=== PATIENT | male | born 1970 | race Caucasian/White ===

== ENCOUNTER 2018-07-08 09:55 | Emergency (ER) | payer BC ==
--- NOTE | 2018-07-08 10:14 | Emergency Department Record ---
History of Present Illness - General Chief Complaint: Ankle/Foot Injury Stated Complaint: RIGHT FOOT INJURY Time Seen by Provider: 07/08/18 09:58 Source: Patient Mode of Arrival: Ambulatory Limitations: No limitations - History of Present Illness Initial Comments: The patient is here due to dropping a 45 lb barbell onto the tops of both feet. The R foot is much worse than the left but both are painful. He is able to walk on the heel of the R foot. Complaint: Foot injury Onset/Timin -: Hour(s) Type of Injury: Blunt Place: Other Severity scale (1-10): 4 Improves With: Nothing Worsens With: Nothing Context: Direct blow Treatments Prior to Arrival: NSAIDS - Related Data Home Medications Medication Instructions Recorded Confirmed Last Taken Ibuprofen [Motrin] 800 mg PO ASDIR 07/08/18 07/08/18 07/08/18 Allergies Allergy/AdvReac Type Severity Reaction Status Date / Time No Known Drug Allergies Allergy Verified 07/08/18 10:09 Travel Screening - Travel/Exposure Within Last 30 Days Have you traveled within the last 30 days?: No - Travel/Exposure Within Last Year Have you traveled outside the [place] in the last year?: No - Additonal Travel Details Have you been exposed to anyone with a communicable illness?: No - Travel Symptoms Symptom Screening: None Review of Systems Constitutional: Denies: Chills, Fever Eyes: Denies: Eye discharge ENT: Denies: Congestion Respiratory: Denies: Cough, Dyspnea Past Medical History - SOCIAL HISTORY Smoking Status: Former smoker Alcohol Use: Rare Drug Use: None - RESPIRATORY Hx Respiratory Disorders: Yes Hx Pneumonia: Yes - CARDIOVASCULAR Hx Cardio Disorders: No - NEURO Hx Neuro Disorders: No - GI Hx GI Disorders: No - Hx Genitourinary Disorders: No - ENDOCRINE Hx Endocrine Disorders: No - MUSCULOSKELETAL Hx Musculoskeletal Disorders: No - PSYCH Hx Psych Problems: No - HEMATOLOGY/ONCOLOGY Hx Hematology/Oncology Disorders: No Family Medical History Any Significant Family History?: No Physical Exam - General General Appearance: Alert, Oriented x3, Cooperative, No acute distress - Head Head exam: Atraumatic, Normocephalic, Normal inspection - Eye Eye exam: Normal appearance, PERRL - Extremities Extremities exam: Normal capillary refill, Tenderness (There is tenderness to palpation to the dorsal distal MT areas of both feet with a large hematoma present over the dorsal distal R foot. ). negative: Normal inspection, Joint swelling Image of Feet: 1 - Large hematoma and tenderness. 2 - Mild tenderness and bruising. - Neurological Neurological exam: Abnormal gait, Alert. negative: Motor sensory deficit, Normal gait Course Vital Signs 07/08/18 10:02 Temperature 97.9 F Pulse Rate 85 Respiratory 16 Rate Blood Pressure 149/89 Pulse Ox 98 - Reevaluation(s) Reevaluation #1: The patient is doing very well at this time. I did discuss the need to ice and elevate the R foot for the next 4 days and to limit his walking on it. He is to F/U with his Orthopedic doctor next week due to the amount of swelling to the R foot. 07/08/18 11:12 Medical Decision Making - Data Complexity MDM Data: X-Ray Ordered and/or Reviewed - Radiology Data Radiology results: Report reviewed (R and L foot: Neg for acute changes. Hematoma R foot on Lateral.) Disposition Disposition: Discharge Clinical Impression: Contusion of foot Qualifiers: Encounter type: initial encounter Laterality: right Qualified Code(s): S90.31XA - Contusion of right foot, initial encounter Disposition: Home, Self-Care Condition: (2) Stable Instructions: Foot Contusion (ED), Hematoma (ED) Additional Instructions: PLease ice and elevate the R foot as much as possible for the next 4 days. Please use the walking boot and crutches as directed. Please see your Orthopedic surgeon for recheck next week. Return to the ER for any worsening symptoms or problems. Forms: Patient Portal Access Time of Disposition: 11:11 Quality - Quality Measures Quality Measures: N/A - Blood Pressure Screening View Details: Yes Does Patient Have Any of the Following: No Blood Pressure Classification: Normal BP Reading Systolic Measurement: 118 Diastolic Measurement: 68 Screening for High Blood Pressure: < Normal BP, F/U Not Required > [G8783] Pre-Hypertensive Follow-up Interventions: Referral to alternative/primary care provider.
--- NOTE | 2018-07-10 23:52 | RADIOLOGY REPORT ---
EXAM: FOOT, RIGHT 3 VIEWS HISTORY: BILATERAL FEET PAIN, BARBELL LANDED ON TOP OF FEET. TECHNIQUE: Three views right foot. COMPARISON: No prior right foot series. ENCOUNTER: Initial. 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 Prominent posterior calcaneal spur. Prominent soft tissue swelling overlying the region of the metatarsals but no definite underlying acute fracture or dislocation identified. IMPRESSION: 1. PROMINENT FOCAL SOFT TISSUE SWELLING OVERLYING THE METATARSALS. 2. DEGENERATIVE CHANGES NOTED ABOVE. 3. NO DEFINITE FRACTURE OF THE RIGHT FOOT IDENTIFIED. JOB NUMBER: [id number] MTDD
--- NOTE | 2018-07-10 23:56 | RADIOLOGY REPORT ---
EXAM: FOOT, LEFT 3 VIEWS HISTORY: TRAUMA, BARBELL LANDED ON TOP OF BOTH FEET. TECHNIQUE: Three views left foot. COMPARISON: No prior left foot series with which to compare. ENCOUNTER: Initial. FINDINGS: Prominent posterior calcaneal spur. Mild degenerative arthritis at the first MTP joint with a very mild hallux valgus deformity. Mild soft tissue swelling overlying the distal aspect of the metatarsals and MTP joints, as seen on the lateral view. No definite fracture or dislocation of the left foot identified. IMPRESSION: 1. SOME MILD SOFT TISSUE SWELLING OVERLYING THE DISTAL METATARSALS. 2. POSTERIOR CALCANEAL SPUR. 3. DEGENERATIVE CHANGE OF THE FIRST MTP JOINT. 4. NO DEFINITE ACUTE FRACTURE OF THE LEFT FOOT IDENTIFIED. JOB NUMBER: [id number] MTDD
== END 2018-07-08 11:30 | disposition home or self-care (01) ==
LOC: ER 09:55
DX: S90.32XA Contusion of left foot, initial encounter (principal); S90.31XA Contusion of right foot, initial encounter; W22.8XXA Striking against or struck by other objects, initial encounter; Z87.891 Personal history of nicotine dependence; Y93.B3 Activity, free weights
CPT/HCPCS: 99283